=== PATIENT | male | born 1960 | race Caucasian/White ===

== ENCOUNTER → 2021-03-28 | Outpatient (CLI) | payer BC ==
[~2021-03-28] MED LIST: AMLODIPINE-BEN1 EAC4 PO; HYDROCODON-ACE1 EAC2 PO; INDOMETHACIN25 MG PO; METOPROLOL SUCC50 MG PO; MONTELUKAST SOD10 MG PO; PROAIR HFA8.5 GM INH; TRIAMCINOLONE
[2021-03-28 13:17] LABS: RED BLOOD COUNT 5.21 M/UL (4.20-5.50); WHITE BLOOD COUNT 7.1 K/UL (4.5-11.0)
[2021-03-28 13:41] LABS: BUN/CREATININE RATIO 13 (0-10)
== END ==
LOC: OPSV2 12:30
PROVIDERS: Orthopaedic Surgery
DX: Z01.818 Encounter for other preprocedural examination (principal); L72.9 Follicular cyst of the skin and subcutaneous tissue, unspecified
CPT/HCPCS: 80048; 85025; 93005

== ENCOUNTER → 2021-04-03 | Day surgery (SDC) | payer BC ==
[~2021-04-03] VITALS: Ht 180.3 cm; Wt 98.9 kg
[2021-04-03 12:24] LABS: BUN/CREATININE RATIO 12 (0-10)
== END | disposition home or self-care (01) ==
LOC: OR 06:53
PROVIDERS: Orthopaedic Surgery
DX: M1A.9XX1 Chronic gout, unspecified, with tophus (tophi) (principal); I10 Essential (primary) hypertension; J45.909 Unspecified asthma, uncomplicated; K21.9 Gastro-esophageal reflux disease without esophagitis; Z20.822 Contact with and (suspected) exposure to COVID-19
CPT/HCPCS: 80048; 84484; 93005; C1713; J0690; J1100; J2001; J2250; J2405; J2704; J3010; J7030; J7120